=== PATIENT | male | born 1945 | race Caucasian/White ===

== ENCOUNTER 2018-02-25 15:47 | Inpatient (IN) ==
[2018-02-25 17:11] LABS: Baso # (Auto) 0.1 th/mm3 (0.0-0.2); Baso % (Auto) 1.1 % (0.0-2.0); Eos # (Auto) 0.2 th/mm3 (0.0-0.4); Eos % (Auto) 3.2 % (0.0-4.0); Mean Corpuscular HGB Conc 33.1 % (32.0-36.0); Mean Corpuscular Hemoglobin 28.6 pg (27.0-34.0); Mean Corpuscular Volume 86.3 fL (80.0-100.0); Mean Platelet Volume 9.8 fL (7.0-11.0); Mono # (Auto) 0.5 th/mm3 (0.0-0.9); Neut # (Auto) 4.7 th/mm3 (1.8-7.7); Neut % (Auto) 72.7 % (16.0-70.0); Platelet Count 160 th/mm3 (150-450); Red Blood Count 2.33 mil/mm3 (4.50-5.90); Red Cell Distribution Width 16.5 % (11.6-17.2); White Blood Count 6.4 th/mm3 (4.0-11.0)
[2018-02-25 17:22] LABS: Hemoglobin 6.7 gm/dL (13.0-17.0)
[2018-02-25 17:23] LABS: Activated Partial Thrombo Time 24.3 sec (24.3-30.1); Hematocrit 20.1 % (39.0-51.0); INR 1.1 Ratio; Prothrombin Time 11.4 sec (9.8-11.6)
[2018-02-25 17:40] LABS: Alanine Aminotransferase 21 U/L (12-78); Albumin 2.6 g/dL (3.4-5.0); Alkaline Phosphatase 81 U/L (45-117); Anion Gap 7 meq/L (5-15); Aspartate Aminotransferase 8 U/L (15-37); Blood Urea Nitrogen 44 mg/dL (7-18); Carbon Dioxide 28.3 meq/L (21.0-32.0); Chloride 105 meq/L (98-107); Glomerular Filtration Rate 33 mL/min (>89); Glucose,Random 385 mg/dL (74-106); Potassium 5.5 meq/L (3.5-5.1); Sodium 140 meq/L (136-145); Total Protein 5.6 g/dL (6.4-8.2)
[2018-02-25] MEDS ORDERED: Sodium Chlor 0.9% Inj 250 ML IV.SIG SCH (18:00)
--- NOTE | 2018-02-25 18:11 | XR ---
EXAM DATE: 02/25/2018 6:08 PM EDT AGE/SEX: 73 years / Male INDICATIONS: Shortness of breath. CLINICAL DATA: This is the patient's initial encounter. Patient reports that signs and symptoms have been present for 1 day and indicates a pain score of 3/10. MEDICAL/SURGICAL HISTORY: . COPD. CHF Hypertension CABG. COMPARISON: [facility], XR CHEST PA AND LAT, 11/16/2017. . FINDINGS: The patient is status post sternotomy. The heart size is borderline enlarged. There is some mild incr eased density at the lateral right base. The lungs appear otherwise clear. CONCLUSION: Mild increased density at the lateral right base likely related to a mild right pleural effusion. Thi s is unchanged. Electronically signed by: Jayant Prado MD 02/25/2018 6:10 PM EDT
[2018-02-25] MEDS ORDERED: Bisacodyl 10 MG Supp RECTAL PRN (18:29)
[2018-02-25] MEDS ORDERED: Acetaminophen 325 MG Tablet PO PRN ×2 (18:29→19:15)
[2018-02-25] MEDS ORDERED: Pantoprazole Inj 80 MG in Sodium Chlor 0.9% Inj 100 ML IV.CONT SCH (18:38)
[2018-02-25] MEDS ORDERED: Dextrose 50% in Water 50 ML Vial IV.PUSH PRN (18:56)
--- NOTE | 2018-02-25 18:56 | P.HPIM ---
History of Present Illness Primary Care Physician: Franny Holbrook MD Chief Complaint: My doctor told me to come here History of Present Illness: 73-year-old white male with a history of diabetes mellitus type 2, congestive heart failure, coronary artery disease, CVA with right-sided weakness who reports 2-3 days of increased fatigue along with intermittent shortness of breath at rest in which his baseline activity is wheelchair-bound due to his right tibial fracture he sustained back in September of this year. His primary care physician ordered lab work on him and found to have a low hemoglobin of 6.6 and instructed him to come to emergency room for further evaluation and workup. He states that he has not seen any blood in the stools or black tarry stools. He has not had any concerns with constipation or diarrhea. He denies symptoms of abdominal pain nor any nausea or vomiting. He had a recent hospitalization at [facility] for congestive heart failure exacerbation and at that time had a hemoglobin of 8.0 and received 2 units of packed red blood cell transfusion per his at bedside. He was seen by his GI physician, Dr. Carbajal who at that time due to his congestive heart failure did not perform inpatient endoscopy. He states that he does have a history of duodenal ulcers which needed to be cauterized in the past. In addition, he was recently placed on Eliquis by his primary care physician for his history of CVA and peripheral vascular disease 1 week ago. Prior to that he was on warfarin. Inpatient Certification: I certify that the inpatient services were ordered in accordance with Medicare regulations governing the order. This includes certification that hospital inpatient services are reasonable and necessary and in the case of services not specified as inpatient-only under 42 CFR 419.22(n), that they are appropriately provided as inpatient services in accordance to with the 2-midnight benchmark under 43 CFR 412.3(e) Estimated Total Length of Stay (Days): 3 Plans for Post Hospital Care: Home health Review of Systems Constitutional: Reports daytime sleepiness, Reports fatigue, Reports lack of energy, Reports weakness, Denies fever(s), Denies weight gain Eyes: Denies change in vision, Denies double vision Ears, Nose, Mouth, and Throat: Denies abnormal hearing, Denies facial pain, Denies hearing loss, Denies neck pain, Denies sore throat Cardiovascular: Reports leg swelling, Reports shortness of breath, Denies chest pain, Denies chest pain at rest, Denies fast heart rate, Denies irregular heart rhythm, Denies rapid, pounding, or irregular heartbeat, Denies slow heart rate Respiratory: Reports cough, Reports shortness of breath, Reports wheezing, Denies change in phlegm color, Denies chest congestion, Denies coughing up blood , Denies pain with cough Gastrointestinal: Denies abdominal pain, Denies black, tarry stools, Denies bright, red blood in stools, Denies change in bowel habits, Denies change in stools, Denies difficulty swallowing, Denies heartburn, Denies loose stools, Denies nausea, Denies vomiting Genitourinary: Denies blood in urine, Denies decreased urination, Denies difficulty urinating, Denies painful urination Musculoskeletal: Reports abnormal walking, Reports limited joint movement, Denies back pain, Denies joint pain Skin/Breast: Reports change in skin color, Denies excessive hair growth, Denies skin pain Neurologic: Reports abnormal walking, Reports localized weakness, Reports weakness, Denies seizure-like activity, Denies tingling/numbness/burning sensations Psychiatric: Denies abnormal sleep pattern, Denies anxiety, Denies change in appetite, Denies depression Endocrine: Denies cold intolerance, Denies heat intolerance Hematologic/Lymphatic: Reports easy bruising Allergic/Immunologic: Denies GI upset with certain foods PMFSH - History History Provided By: Patient - Medical History Medical History: Medical History (Last Updated 02/25/18 @ 18:46 by Ambreen Wong MD) Atherosclerotic heart disease of artery bypass graft CHF (congestive heart failure) Diabetes Duodenal ulcer Hip fracture, intertrochanteric Hip injury Hyperlipidemia Kidney damage PVD (peripheral vascular disease) Stroke Tibia fracture - Surgical History Surgical History: Surgical History (Last Updated 02/25/18 @ 18:47 by Ambreen Wong MD) History of arthroscopic knee surgery Hx of CABG Hx of cardiac catheterization Hx of cataract surgery S/P foot surgery, right - Family History Family History: Family History (Last Updated 02/25/18 @ 18:47 by Ambreen Wong MD) Other Family history of hypertension - Tobacco History Second Hand Smoke Exposure: No Tobacco Use In Past 30 Days: No Smoking Status: Current every day smoker Tobacco Type: Cigarettes - Alcohol History How Often Do You Have a Drink Containing Alcohol: Never - Substance Use History Substance History: No History of Abuse - Travel History Recent Travel in the [place] Within the Last 8 Weeks: No Recent Travel Out of the Country Within the Last 8 Weeks: No - Immunization History Tetanus Immunization: Unable to Assess Hx Influenza Vaccine This Season: Unable to Assess Medications and Allergies Active Medications: Active Medications Acetaminophen (Tylenol) 650 mg PO Q4H PRN PRN Reason: Temp > 100.4 Al Hydroxide/Mg Hydroxide (Milk Of Magnesia Liq) 30 ml PO Q12H PRN PRN Reason: Mild Constipation Bisacodyl (Dulcolax Supp) 10 mg RECTAL DAILY PRN PRN Reason: SEVERE CONSITIPATION Furosemide (Lasix Inj) 20 mg IV.PUSH ONCE ONE Stop: 02/25/18 18:36 Sodium Chloride (Ns Inj) 250 mls @ 15 mls/hr IV.SIG ONCE KEYON Stop: 02/26/18 10:39 Pantoprazole Sodium 80 mg/ (Sodium Chloride) 100 mls @ 10 mls/hr IV.CONT CONT KEYON Lactulose (Lactulose Liq) 30 ml PO DAILY PRN PRN Reason: SEVERE CONSITIPATION Sennosides (Senokot) 17.2 mg PO Q12H PRN PRN Reason: Moderate Constipation Sodium Chloride (Ns Flush) 2 ml IV.FLUSH PRN PRN PRN Reason: FLUSH AFTER USING IV ACCESS Sodium Chloride (Ns Flush) 2 ml IV.FLUSH BID KEYON Sodium Chloride (Ns Flush) 2 ml IV.FLUSH PRN PRN PRN Reason: FLUSH AFTER USING IV ACCESS Allergies Allergy/AdvReac Type Severity Reaction Status Date / Time morphine Allergy Intermediate HALLUCINATE Unverified 03/30/17 01:23 S Exam Vital signs: Vital Signs 02/25/18 16:07 02/25/18 16:10 Temperature 99.1 F 98.5 F Pulse Rate 60 64 Respiratory Rate 20 18 Blood Pressure 146/60 H 118/56 L Pulse Oximetry 97 96 Intake & Output 02/24/18 02/25/18 02/25/18 18:59 06:59 18:59 Weight 241 kg Narrative: GENERAL: Well-nourished well-developed white male sitting in bed no acute distress SKIN: Warm and dry. Patient had venous stasis dermatitis skin changes with peeling of some dry skin bilateral lower extremities below the knee circumferential HEAD: Atraumatic. Normocephalic. EYES: Pupils equal and round. No scleral icterus. No injection or drainage. ENT: No nasal bleeding or discharge. Mucous membranes pink and moist. Oropharynx benign NECK: Trachea midline. No JVD. CARDIOVASCULAR: Regular rate and rhythm. RESPIRATORY: No accessory muscle use. Few expiratory wheeze bilateral bases. GASTROINTESTINAL: Abdomen soft, non-tender, nondistended. Hepatic and splenic margins not palpable. Normoactive bowel sounds MUSCULOSKELETAL: Extremities without clubbing, cyanosis, 1+ pitting edema NEUROLOGICAL: Awake and alert to person place time and situation. No obvious cranial nerve deficits. Motor strength of 4.5 out of 5 right upper extremities and right lower extremities, sensation grossly intact. Normal speech. PSYCHIATRIC: Appropriate mood and affect; insight and judgment normal. Results - Labs CBC & Chem 7: 02/25/18 16:35 02/25/18 16:35 Labs: Short CBC 02/25/18 Range/Units 16:35 WBC 6.4 (4.0-11.0) th/mm3 Hgb 6.7 L* (13.0-17.0) gm/dL Hct 20.1 L* (39.0-51.0) % Plt Count 160 (150-450) th/mm3 BMP 02/25/18 16:35 Sodium 140 Potassium 5.5 H Chloride 105 Carbon Dioxide 28.3 BUN 44 H Creatinine 1.99 H Calcium 8.0 L Liver Function 02/25/18 Range/Units 16:35 Total Bilirubin 0.2 (0.2-1.0) mg/dL AST 8 L (15-37) U/L ALT 21 (12-78) U/L Alkaline Phosphatase 81 (45-117) U/L Albumin 2.6 L (3.4-5.0) g/dL - Imaging Impressions Chest X-Ray 02/25/18 17:46 CONCLUSION: Mild increased density at the lateral right base likely related to a mild right pleural effusion. This is unchanged. Caprini VTE Risk Assessment Caprini VTE Risk Assessment: Moderate/High Risk (score >= 2) VTE Pharmacological Exception Reason: Active bleeding Caprini Risk Assessment Model: Point Value = 1 Point Value = 2 Point Value = 3 Point Value = 5 Age 41-60 Minor surgery BMI > 25 kg/m2 Swollen legs Varicose veins or History of unexplained or recurrent spontaneous Oral contraceptives or hormone replacement Sepsis (< 1 month) Serious lung disease, including pneumonia (< 1 month) Abnormal pulmonary function Acute myocardial infarction Congestive heart failure (< 1 month) History of inflammatory bowel disease Medical patient at bed rest Age 61-74 Arthroscopic surgery Major open surgery (> 45 min) Laparoscopic surgery (> 45 min) Malignancy Confined to bed (> 72 hours) Immobilizing plaster cast Central venous access Age >= 75 History of VTE Family history of VTE Factor V Leiden Prothrombin [id number] Lupus anticoagulant Anticardiolipin antibodies Elevated serum homocysteine Heparin-induced thrombocytopenia Other congenital or acquired thrombophilia Stroke (< 1 month) Elective arthroplasty Hip, pelvis, or leg fracture Acute spinal cord injury (< 1 month) Prophylaxis Regimen: Total Risk Factor Score Risk Level Prophylaxis Regimen 0-1 Low Early ambulation 2 Moderate Order ONE of the following: *Sequential Compression Device (SCD) *Heparin 5000 units SQ BID 3-4 Higher Order ONE of the following medications: *Heparin 5000 units SQ TID *Enoxaparin/Lovenox 40 mg SQ daily (WT < 150 kg, CrCl > 30 mL/min) *Enoxaparin/Lovenox 30 mg SQ daily (WT < 150 kg, CrCl > 10-29 mL/min) *Enoxaparin/Lovenox 30 mg SQ BID (WT < 150 kg, CrCl > 30 mL/min) AND/OR *Sequential Compression Device (SCD) 5 or more Highest Order ONE of the following medications: *Heparin 5000 units SQ TID (Preferred with Epidurals) *Enoxaparin/Lovenox 40 mg SQ daily (WT < 150 kg, CrCl > 30 mL/min) *Enoxaparin/Lovenox 30 mg SQ daily (WT < 150 kg, CrCl > 10-29 mL/min) *Enoxaparin/Lovenox 30 mg SQ BID (WT < 150 kg, CrCl > 30 mL/min) AND *Sequential Compression Device (SCD) Assessment and Plan - Plan 73-year-old white male with a history of diabetes mellitus type 2, congestive heart failure, coronary artery disease, peripheral vascular disease, CVA who has been on Eliquis during the past week was sent to the emergency room by his primary care physician secondary abnormal lab in low hemoglobin of 6.6 1. Acute anemia likely due to underlying GI bleedat this time stop Eliquis. Start patient on Protonix drip. Transfuse 2 units of packed red blood cell with Lasix between units. Monitor hemoglobin hematocrit. Consult his GI physician Dr. Barrow for further recommendations. 2. History of congestive heart failurecurrently compensated, will monitor closely on fluids given and transfusion. Lasix between units. 3. Diabetes mellitus type 2continue with Accu-Cheks with sliding scale insulin 4. History of CVApatient currently wheelchair bound due to previous right tibial fracturecontinue physical therapy will need home health care upon discharge to home. At this time will hold Eliquis. 5. Acute kidney injury likely due to GI bleedwill monitor BUN/creatinine with transfusion. 5. DVT prophylaxisanticoagulation contraindicated due to GI bleed. Mechanical prophylaxis contraindicated secondary to bilateral lower extremity edema. We will have family member bring in list of home medication to review.
[2018-02-25 19:44] LABS: Ovalocytes 1+; Platelet Estimate Normal (Normal)
--- NOTE | 2018-02-25 20:10 | ED ---
HPI General Chief complaint: Recheck/Abnormal Lab/Rx Stated complaint: Doc Sent/Medical Time Seen by Provider: 02/25/18 16:25 History of Present Illness HPI narrative: Patient is a 73-year-old male with a history of chronic GI bleeding, has had pill camera's endoscopies and still no source identified presents to the ER for evaluation of low hemoglobin at outpatient lab. Patient states has been feeling a little short of breath and has had CHF in the past. NO abdominal pain, chornically dark stools, no hematemesis. Patient states that he was told his hemoglobin was 6.6. States has had several outpatient blood transfusions in the past as well. Symptoms moderate, context, associated s/s as above. Duration is months to years. Related Data Home Medications Medication Instructions Recorded Confirmed Calcium 600 PO 02/25/18 amlodipine 10 mg PO DAILY 02/25/18 02/25/18 apixaban [Eliquis] 5 mg PO BID 02/25/18 02/25/18 atorvastatin [Lipitor] 80 mg PO DAILY 02/25/18 02/25/18 doxazosin 4 mg PO BID 02/25/18 02/25/18 escitalopram oxalate [Lexapro] PO BID 02/25/18 furosemide 20 mg PO BID 02/25/18 02/25/18 iron 28 mg PO BID 02/25/18 02/25/18 metoprolol tartrate 12.5 mg PO BID 02/25/18 02/25/18 pantoprazole 40 mg PO DAILY 02/25/18 02/25/18 Allergies Allergy/AdvReac Type Severity Reaction Status Date / Time morphine Allergy Intermediate HALLUCINATE Unverified 03/30/17 01:23 S Review of Systems Except as stated in HPI: all other systems reviewed are negative [facility] Surgical History Surgical History History of arthroscopic knee surgery (Acute) Hx of CABG (Acute) Hx of cardiac catheterization (Acute) Hx of cataract surgery (Acute) S/P foot surgery, right (Acute) Family History Family History Other Family history of hypertension Social History Social History Substance History: No History of Abuse Second Hand Smoke Exposure: Yes Smoking Status: Current every day smoker Tobacco Type: Cigarettes How Often Do You Have a Drink Containing Alcohol: Never Recent Travel in [facility] within the Last 8 Weeks: No Recent Out of Country Travel within the Last 8 Weeks: No Exam Narrative Exam Narrative: GENERAL: Well-developed pleasant pale-appearing male in no obvious distress. SKIN: Focused skin assessment warm/dry. HEAD: Atraumatic. Normocephalic. EYES: Pupils equal and round. No scleral icterus. No injection or drainage. ENT: No nasal bleeding or discharge. Mucous membranes pink and moist. NECK: Trachea midline. No JVD. CARDIOVASCULAR: Regular rate and rhythm. No murmur appreciated. RESPIRATORY: No accessory muscle use. Clear to auscultation. Breath sounds equal bilaterally. GASTROINTESTINAL: Abdomen soft, non-tender, nondistended. Hepatic and splenic margins not palpable. MUSCULOSKELETAL: No obvious deformities. No clubbing. No cyanosis. No edema. NEUROLOGICAL: Awake and alert. No obvious cranial nerve deficits. Motor grossly within normal limits. Normal speech. PSYCHIATRIC: Appropriate mood and affect; insight and judgment normal. Course Initial Documented Vital Signs Temperature 99.1 F 02/25/18 16:07 Pulse Rate 60 02/25/18 16:07 Respiratory Rate 20 02/25/18 16:07 Blood Pressure 146/60 H 02/25/18 16:07 Pulse Oximetry 97 02/25/18 16:07 Last Documented Vital Signs Temperature 97.3 F L 02/27/18 18:14 Pulse Rate 67 02/27/18 18:14 Respiratory Rate 18 02/27/18 18:14 Blood Pressure 204/84 H 02/27/18 18:14 Pulse Oximetry 96 02/27/18 18:14 Medical Decision Making [facility] Narrative Medical decision making narrative: Patient roomed in the ER> Hemodynamically vs are reassuring. Labs repeated here and hemoglobin is 6.7. He is symptomatic. Recommended transfusion and after dicusssion of r/b/c/a he agrees. 2U in ER and 4 in reserve. Discussed for admission and he is agreeable. Differential Diagnosis Differential Diagnosis: Anemia, GI bleeding, CHF exacerbation, electrolyte abnormality. Lab Data Result diagrams: 02/27/18 09:15 02/27/18 09:15 Lab Results 02/25/18 02/25/18 02/25/18 Range/Units 16:35 16:35 16:35 WBC 6.4 (4.0-11.0) th/mm3 RBC 2.33 L (4.50-5.90) mil/mm3 Hgb 6.7 L* (13.0-17.0) gm/dL Hct 20.1 L* (39.0-51.0) % MCV 86.3 (80.0-100.0) fL MCH 28.6 (27.0-34.0) pg MCHC 33.1 (32.0-36.0) % RDW 16.5 (11.6-17.2) % Plt Count 160 (150-450) th/mm3 MPV 9.8 (7.0-11.0) fL Prelim Diff (Auto) Slide review pending Neut % (Auto) 72.7 H (16.0-70.0) % Lymph % (Auto) 15.0 (9.0-44.0) % [place] % (Auto) 8.0 (0.0-8.0) % Eos % (Auto) 3.2 (0.0-4.0) % Baso % (Auto) 1.1 (0.0-2.0) % Neut # (Auto) 4.7 (1.8-7.7) th/mm3 Lymph # (Auto) 1.0 (1.0-4.8) th/mm3 [place] # (Auto) 0.5 (0.0-0.9) th/mm3 Eos # (Auto) 0.2 (0.0-0.4) th/mm3 Baso # (Auto) 0.1 (0.0-0.2) th/mm3 WBC Differential . Diff Scan Auto diff confirmed Differential Comment . Platelet Estimate Normal (Normal) Platelet Morphology Enlarged H (Normal) Ovalocytes 1+ H (None) Keratocytes Occ H (None) PT 11.4 (9.8-11.6) sec INR 1.1 Ratio APTT 24.3 (24.3-30.1) sec Sodium 140 (136-145) meq/L Potassium 5.5 H (3.5-5.1) meq/L Chloride 105 (98-107) meq/L Carbon Dioxide 28.3 (21.0-32.0) meq/L Anion Gap 7 (5-15) meq/L BUN 44 H (7-18) mg/dL Creatinine 1.99 H (0.60-1.30) mg/dL Estimated GFR 33 L (>89) mL/min POC Glucose (68-110) mg/dl Random Glucose 385 H D (74-106) mg/dL Calcium 8.0 L (8.5-10.1) mg/dL Total Bilirubin 0.2 (0.2-1.0) mg/dL AST 8 L (15-37) U/L ALT 21 (12-78) U/L Alkaline Phosphatase 81 (45-117) U/L Total Protein 5.6 L (6.4-8.2) g/dL Albumin 2.6 L (3.4-5.0) g/dL Blood Type Antibody Screen MTS Gel Crossmatch 02/25/18 02/25/18 02/25/18 Range/Units 16:35 16:35 19:11 WBC (4.0-11.0) th/mm3 RBC (4.50-5.90) mil/mm3 Hgb (13.0-17.0) gm/dL Hct (39.0-51.0) % MCV (80.0-100.0) fL MCH (27.0-34.0) pg MCHC (32.0-36.0) % RDW (11.6-17.2) % Plt Count (150-450) th/mm3 MPV (7.0-11.0) fL Prelim Diff (Auto) Neut % (Auto) (16.0-70.0) % Lymph % (Auto) (9.0-44.0) % [place] % (Auto) (0.0-8.0) % Eos % (Auto) (0.0-4.0) % Baso % (Auto) (0.0-2.0) % Neut # (Auto) (1.8-7.7) th/mm3 Lymph # (Auto) (1.0-4.8) th/mm3 [place] # (Auto) (0.0-0.9) th/mm3 Eos # (Auto) (0.0-0.4) th/mm3 Baso # (Auto) (0.0-0.2) th/mm3 WBC Differential Diff Scan Differential Comment Platelet Estimate (Normal) Platelet Morphology (Normal) Ovalocytes (None) Keratocytes (None) PT (9.8-11.6) sec INR Ratio APTT (24.3-30.1) sec Sodium (136-145) meq/L Potassium (3.5-5.1) meq/L Chloride (98-107) meq/L Carbon Dioxide (21.0-32.0) meq/L Anion Gap (5-15) meq/L BUN (7-18) mg/dL Creatinine (0.60-1.30) mg/dL Estimated GFR (>89) mL/min POC Glucose 338 H (68-110) mg/dl Random Glucose (74-106) mg/dL Calcium (8.5-10.1) mg/dL Total Bilirubin (0.2-1.0) mg/dL AST (15-37) U/L ALT (12-78) U/L Alkaline Phosphatase (45-117) U/L Total Protein (6.4-8.2) g/dL Albumin (3.4-5.0) g/dL Blood Type A Negative Antibody Screen Negative MTS Gel Crossmatch See Detail 02/25/18 02/26/18 02/26/18 Range/Units 20:35 03:12 03:12 WBC (4.0-11.0) th/mm3 RBC (4.50-5.90) mil/mm3 Hgb 7.9 L (13.0-17.0) gm/dL Hct 23.2 L (39.0-51.0) % MCV (80.0-100.0) fL MCH (27.0-34.0) pg MCHC (32.0-36.0) % RDW (11.6-17.2) % Plt Count (150-450) th/mm3 MPV (7.0-11.0) fL Prelim Diff (Auto) Neut % (Auto) (16.0-70.0) % Lymph % (Auto) (9.0-44.0) % [place] % (Auto) (0.0-8.0) % Eos % (Auto) (0.0-4.0) % Baso % (Auto) (0.0-2.0) % Neut # (Auto) (1.8-7.7) th/mm3 Lymph # (Auto) (1.0-4.8) th/mm3 [place] # (Auto) (0.0-0.9) th/mm3 Eos # (Auto) (0.0-0.4) th/mm3 Baso # (Auto) (0.0-0.2) th/mm3 WBC Differential Diff Scan Differential Comment Platelet Estimate (Normal) Platelet Morphology (Normal) Ovalocytes (None) Keratocytes (None) PT (9.8-11.6) sec INR Ratio APTT (24.3-30.1) sec Sodium 143 (136-145) meq/L Potassium 4.7 D (3.5-5.1) meq/L Chloride 108 H (98-107) meq/L Carbon Dioxide 31.3 (21.0-32.0) meq/L Anion Gap 4 L (5-15) meq/L BUN 43 H (7-18) mg/dL Creatinine 1.82 H (0.60-1.30) mg/dL Estimated GFR 37 L (>89) mL/min POC Glucose 281 H (68-110) mg/dl Random Glucose 140 H D (74-106) mg/dL Calcium 8.3 L (8.5-10.1) mg/dL Total Bilirubin (0.2-1.0) mg/dL AST (15-37) U/L ALT (12-78) U/L Alkaline Phosphatase (45-117) U/L Total Protein (6.4-8.2) g/dL Albumin (3.4-5.0) g/dL Blood Type Antibody Screen MTS Gel Crossmatch 02/26/18 02/26/18 02/26/18 Range/Units 07:24 11:46 12:15 WBC 7.4 (4.0-11.0) th/mm3 RBC 2.81 L (4.50-5.90) mil/mm3 Hgb 8.1 L (13.0-17.0) gm/dL Hct 24.2 L (39.0-51.0) % MCV 86.0 (80.0-100.0) fL MCH 28.7 (27.0-34.0) pg MCHC 33.4 (32.0-36.0) % RDW 16.3 (11.6-17.2) % Plt Count 173 (150-450) th/mm3 MPV 9.8 (7.0-11.0) fL Prelim Diff (Auto) Neut % (Auto) 74.4 H (16.0-70.0) % Lymph % (Auto) 14.1 (9.0-44.0) % [place] % (Auto) 6.8 (0.0-8.0) % Eos % (Auto) 3.4 (0.0-4.0) % Baso % (Auto) 1.3 (0.0-2.0) % Neut # (Auto) 5.5 (1.8-7.7) th/mm3 Lymph # (Auto) 1.0 (1.0-4.8) th/mm3 [place] # (Auto) 0.5 (0.0-0.9) th/mm3 Eos # (Auto) 0.2 (0.0-0.4) th/mm3 Baso # (Auto) 0.1 (0.0-0.2) th/mm3 WBC Differential . Diff Scan Differential Comment Auto diff final Platelet Estimate (Normal) Platelet Morphology (Normal) Ovalocytes (None) Keratocytes (None) PT (9.8-11.6) sec INR Ratio APTT (24.3-30.1) sec Sodium (136-145) meq/L Potassium (3.5-5.1) meq/L Chloride (98-107) meq/L Carbon Dioxide (21.0-32.0) meq/L Anion Gap (5-15) meq/L BUN (7-18) mg/dL Creatinine (0.60-1.30) mg/dL Estimated GFR (>89) mL/min POC Glucose 148 H 173 H (68-110) mg/dl Random Glucose (74-106) mg/dL Calcium (8.5-10.1) mg/dL Total Bilirubin (0.2-1.0) mg/dL AST (15-37) U/L ALT (12-78) U/L Alkaline Phosphatase (45-117) U/L Total Protein (6.4-8.2) g/dL Albumin (3.4-5.0) g/dL Blood Type Antibody Screen MTS Gel Crossmatch 02/26/18 02/26/18 02/27/18 Range/Units 16:52 23:13 08:35 WBC (4.0-11.0) th/mm3 RBC (4.50-5.90) mil/mm3 Hgb (13.0-17.0) gm/dL Hct (39.0-51.0) % MCV (80.0-100.0) fL MCH (27.0-34.0) pg MCHC (32.0-36.0) % RDW (11.6-17.2) % Plt Count (150-450) th/mm3 MPV (7.0-11.0) fL Prelim Diff (Auto) Neut % (Auto) (16.0-70.0) % Lymph % (Auto) (9.0-44.0) % [place] % (Auto) (0.0-8.0) % Eos % (Auto) (0.0-4.0) % Baso % (Auto) (0.0-2.0) % Neut # (Auto) (1.8-7.7) th/mm3 Lymph # (Auto) (1.0-4.8) th/mm3 [place] # (Auto) (0.0-0.9) th/mm3 Eos # (Auto) (0.0-0.4) th/mm3 Baso # (Auto) (0.0-0.2) th/mm3 WBC Differential Diff Scan Differential Comment Platelet Estimate (Normal) Platelet Morphology (Normal) Ovalocytes (None) Keratocytes (None) PT (9.8-11.6) sec INR Ratio APTT (24.3-30.1) sec Sodium (136-145) meq/L Potassium (3.5-5.1) meq/L Chloride (98-107) meq/L Carbon Dioxide (21.0-32.0) meq/L Anion Gap (5-15) meq/L BUN (7-18) mg/dL Creatinine (0.60-1.30) mg/dL Estimated GFR (>89) mL/min POC Glucose 222 H 236 H 159 H (68-110) mg/dl Random Glucose (74-106) mg/dL Calcium (8.5-10.1) mg/dL Total Bilirubin (0.2-1.0) mg/dL AST (15-37) U/L ALT (12-78) U/L Alkaline Phosphatase (45-117) U/L Total Protein (6.4-8.2) g/dL Albumin (3.4-5.0) g/dL Blood Type Antibody Screen MTS Gel Crossmatch 02/27/18 02/27/18 02/27/18 Range/Units 09:15 09:15 12:26 WBC 6.4 (4.0-11.0) th/mm3 RBC 2.89 L (4.50-5.90) mil/mm3 Hgb 8.2 L (13.0-17.0) gm/dL Hct 24.9 L (39.0-51.0) % MCV 86.3 (80.0-100.0) fL MCH 28.5 (27.0-34.0) pg MCHC 33.1 (32.0-36.0) % RDW 16.8 (11.6-17.2) % Plt Count 156 (150-450) th/mm3 MPV 9.7 (7.0-11.0) fL Prelim Diff (Auto) Neut % (Auto) 73.8 H (16.0-70.0) % Lymph % (Auto) 13.2 (9.0-44.0) % [place] % (Auto) 8.1 H (0.0-8.0) % Eos % (Auto) 3.7 (0.0-4.0) % Baso % (Auto) 1.2 (0.0-2.0) % Neut # (Auto) 4.7 (1.8-7.7) th/mm3 Lymph # (Auto) 0.8 L (1.0-4.8) th/mm3 [place] # (Auto) 0.5 (0.0-0.9) th/mm3 Eos # (Auto) 0.2 (0.0-0.4) th/mm3 Baso # (Auto) 0.1 (0.0-0.2) th/mm3 WBC Differential . Diff Scan Differential Comment Auto diff final Platelet Estimate (Normal) Platelet Morphology (Normal) Ovalocytes (None) Keratocytes (None) PT (9.8-11.6) sec INR Ratio APTT (24.3-30.1) sec Sodium 147 H (136-145) meq/L Potassium 4.6 (3.5-5.1) meq/L Chloride 110 H (98-107) meq/L Carbon Dioxide 29.9 (21.0-32.0) meq/L Anion Gap 7 (5-15) meq/L BUN 35 H (7-18) mg/dL Creatinine 1.55 H (0.60-1.30) mg/dL Estimated GFR 44 L (>89) mL/min POC Glucose 138 H (68-110) mg/dl Random Glucose 124 H (74-106) mg/dL Calcium 8.4 L (8.5-10.1) mg/dL Total Bilirubin 0.4 (0.2-1.0) mg/dL AST 11 L (15-37) U/L ALT 19 (12-78) U/L Alkaline Phosphatase 81 (45-117) U/L Total Protein 5.7 L (6.4-8.2) g/dL Albumin 2.7 L (3.4-5.0) g/dL Blood Type Antibody Screen MTS Gel Crossmatch 02/27/18 02/27/18 Range/Units 17:09 19:45 WBC (4.0-11.0) th/mm3 RBC (4.50-5.90) mil/mm3 Hgb (13.0-17.0) gm/dL Hct (39.0-51.0) % MCV (80.0-100.0) fL MCH (27.0-34.0) pg MCHC (32.0-36.0) % RDW (11.6-17.2) % Plt Count (150-450) th/mm3 MPV (7.0-11.0) fL Prelim Diff (Auto) Neut % (Auto) (16.0-70.0) % Lymph % (Auto) (9.0-44.0) % [place] % (Auto) (0.0-8.0) % Eos % (Auto) (0.0-4.0) % Baso % (Auto) (0.0-2.0) % Neut # (Auto) (1.8-7.7) th/mm3 Lymph # (Auto) (1.0-4.8) th/mm3 [place] # (Auto) (0.0-0.9) th/mm3 Eos # (Auto) (0.0-0.4) th/mm3 Baso # (Auto) (0.0-0.2) th/mm3 WBC Differential Diff Scan Differential Comment Platelet Estimate (Normal) Platelet Morphology (Normal) Ovalocytes (None) Keratocytes (None) PT (9.8-11.6) sec INR Ratio APTT (24.3-30.1) sec Sodium (136-145) meq/L Potassium (3.5-5.1) meq/L Chloride (98-107) meq/L Carbon Dioxide (21.0-32.0) meq/L Anion Gap (5-15) meq/L BUN (7-18) mg/dL Creatinine (0.60-1.30) mg/dL Estimated GFR (>89) mL/min POC Glucose 126 H 242 H (68-110) mg/dl Random Glucose (74-106) mg/dL Calcium (8.5-10.1) mg/dL Total Bilirubin (0.2-1.0) mg/dL AST (15-37) U/L ALT (12-78) U/L Alkaline Phosphatase (45-117) U/L Total Protein (6.4-8.2) g/dL Albumin (3.4-5.0) g/dL Blood Type Antibody Screen MTS Gel Crossmatch Imaging Data Radiologist's impression: Chest X-Ray 02/25/18 17:46 CONCLUSION: Mild increased density at the lateral right base likely related to a mild right pleural effusion. This is unchanged. Discharge Plan Discharge Disposition Patient Disposition: 30 Still Patient Discharge Details Diagnosis: Symptomatic anemia, Occult GI bleeding Physicians Team ED Provider: Rudolph Chaves Primary Care Provider: Franny Holbrook Attending Provider: Ambreen Wong Other Providers: Bert Barrow [employer] Discharge Interventions Interventions: ED Discharge Assessment Last Done: 02/25/18 20:24 Vital Signs Last Done: 02/25/18 16:10 Status ED Status: Left Department Discharge Information Discharge Date/Time: 02/25/18 19:45
[2018-02-25] MEDS: Insulin NovoLOG Aspart Correctional Sugar Inj SQ SCH (20:56)
[2018-02-26 03:25] LABS: Hematocrit 23.2 % (39.0-51.0); Hemoglobin 7.9 gm/dL (13.0-17.0)
[2018-02-26 03:49] LABS: Calcium 8.3 mg/dL (8.5-10.1); Carbon Dioxide 31.3 meq/L (21.0-32.0); Potassium 4.7 meq/L (3.5-5.1)
[2018-02-26] MEDS: Insulin NovoLOG Aspart Correctional Sugar Inj SQ SCH ×4 (07:44→23:19)
--- NOTE | 2018-02-26 10:32 | P.PN ---
Subjective Interval history: Follow-up acute symptomatic anemia February 26, 2018-patient seen and examined, he was transfused 2 units packed red blood cells however H&H still low will repeat. Denies any nausea vomiting this a.m. Physical Exam Vital signs: Vital Signs 02/25/18 16:07 02/25/18 16:10 02/25/18 18:39 Temperature 99.1 F 98.5 F Pulse Rate 60 64 Respiratory Rate 20 18 Blood Pressure 146/60 H 118/56 L Pulse Oximetry 97 96 94 L 02/25/18 19:01 02/25/18 19:25 02/25/18 20:00 Temperature 98.4 F 98.3 F 97.8 F Pulse Rate 64 62 66 Respiratory Rate 16 18 17 Blood Pressure 172/73 H 140/64 158/70 H Pulse Oximetry 95 96 96 02/25/18 21:41 02/25/18 22:00 02/25/18 22:04 Temperature 97.2 F L Pulse Rate 84 80 Respiratory Rate 16 16 Blood Pressure 157/67 H 146/68 H Pulse Oximetry 95 94 L 95 02/26/18 00:00 02/26/18 04:00 02/26/18 08:00 Temperature 97.8 F 98 F 97.4 F L Pulse Rate 61 64 66 Respiratory Rate 19 17 20 Blood Pressure 121/56 L 122/65 173/77 H Pulse Oximetry 97 97 94 L Intake & Output 02/25/18 02/26/18 02/26/18 18:59 06:59 18:59 Intake Total 250 / 250 150 / 150 Balance 250 / 250 150 / 150 Weight 241 kg 109.9 kg Intake: IV 150 / 150 Protonix Inj 80 MG In NS Inj 100 / 100 100 ML @ 10 mls/hr IV.CONT CONT KEYON Rx#:[id number] NS Inj 250 ML @ 15 mls/hr IV. 50 / 50 SIG ONCE KEYON Rx#:[id number] Intake (Blood Product) Amt 250 / 250 Rbc As-3 Leukoreduced Unit 0 / 0 [id number] Rbc As-3 Leukoreduced Unit 250 / 250 [id number] Narrative: GENERAL: NAD SKIN: Warm and dry. HEAD: Normocephalic. EYES: No scleral icterus. No injection or drainage. NECK: Supple, trachea midline. No JVD or lymphadenopathy. CARDIOVASCULAR: Regular rate and rhythm without murmurs, gallops, or rubs. RESPIRATORY: Breath sounds equal bilaterally. No accessory muscle use. GASTROINTESTINAL: Abdomen soft, non-tender, nondistended. MUSCULOSKELETAL: No cyanosis, or edema. BACK: Nontender without obvious deformity. No CVA tenderness. Results - Labs CBC & Chem 7: 02/26/18 03:12 02/26/18 03:12 Laboratory Results - last 24 hr 02/25/18 02/25/18 02/25/18 16:35 16:35 16:35 WBC 6.4 RBC 2.33 L Hgb 6.7 L* Hct 20.1 L* MCV 86.3 MCH 28.6 MCHC 33.1 RDW 16.5 Plt Count 160 MPV 9.8 Prelim Diff (Auto) Slide review pending Neut % (Auto) 72.7 H Lymph % (Auto) 15.0 [place] % (Auto) 8.0 Eos % (Auto) 3.2 Baso % (Auto) 1.1 Neut # (Auto) 4.7 Lymph # (Auto) 1.0 [place] # (Auto) 0.5 Eos # (Auto) 0.2 Baso # (Auto) 0.1 WBC Differential . Diff Scan Auto diff confirmed Differential Comment . Platelet Estimate Normal Platelet Morphology Enlarged H Ovalocytes 1+ H Keratocytes Occ H PT 11.4 INR 1.1 APTT 24.3 Sodium 140 Potassium 5.5 H Chloride 105 Carbon Dioxide 28.3 Anion Gap 7 BUN 44 H Creatinine 1.99 H Estimated GFR 33 L POC Glucose Random Glucose 385 H D Calcium 8.0 L Total Bilirubin 0.2 AST 8 L ALT 21 Alkaline Phosphatase 81 Total Protein 5.6 L Albumin 2.6 L Blood Type Antibody Screen MTS Gel Crossmatch 02/25/18 02/25/18 02/25/18 16:35 16:35 19:11 WBC RBC Hgb Hct MCV MCH MCHC RDW Plt Count MPV Prelim Diff (Auto) Neut % (Auto) Lymph % (Auto) [place] % (Auto) Eos % (Auto) Baso % (Auto) Neut # (Auto) Lymph # (Auto) [place] # (Auto) Eos # (Auto) Baso # (Auto) WBC Differential Diff Scan Differential Comment Platelet Estimate Platelet Morphology Ovalocytes Keratocytes PT INR APTT Sodium Potassium Chloride Carbon Dioxide Anion Gap BUN Creatinine Estimated GFR POC Glucose 338 H Random Glucose Calcium Total Bilirubin AST ALT Alkaline Phosphatase Total Protein Albumin Blood Type A Negative Antibody Screen Negative MTS Gel Crossmatch See Detail 02/25/18 02/26/18 02/26/18 20:35 03:12 03:12 WBC RBC Hgb 7.9 L Hct 23.2 L MCV MCH MCHC RDW Plt Count MPV Prelim Diff (Auto) Neut % (Auto) Lymph % (Auto) [place] % (Auto) Eos % (Auto) Baso % (Auto) Neut # (Auto) Lymph # (Auto) [place] # (Auto) Eos # (Auto) Baso # (Auto) WBC Differential Diff Scan Differential Comment Platelet Estimate Platelet Morphology Ovalocytes Keratocytes PT INR APTT Sodium 143 Potassium 4.7 D Chloride 108 H Carbon Dioxide 31.3 Anion Gap 4 L BUN 43 H Creatinine 1.82 H Estimated GFR 37 L POC Glucose 281 H Random Glucose 140 H D Calcium 8.3 L Total Bilirubin AST ALT Alkaline Phosphatase Total Protein Albumin Blood Type Antibody Screen MTS Gel Crossmatch 02/26/18 07:24 WBC RBC Hgb Hct MCV MCH MCHC RDW Plt Count MPV Prelim Diff (Auto) Neut % (Auto) Lymph % (Auto) [place] % (Auto) Eos % (Auto) Baso % (Auto) Neut # (Auto) Lymph # (Auto) [place] # (Auto) Eos # (Auto) Baso # (Auto) WBC Differential Diff Scan Differential Comment Platelet Estimate Platelet Morphology Ovalocytes Keratocytes PT INR APTT Sodium Potassium Chloride Carbon Dioxide Anion Gap BUN Creatinine Estimated GFR POC Glucose 148 H Random Glucose Calcium Total Bilirubin AST ALT Alkaline Phosphatase Total Protein Albumin Blood Type Antibody Screen MTS Gel Crossmatch - Imaging Impressions Chest X-Ray 02/25/18 17:46 CONCLUSION: Mild increased density at the lateral right base likely related to a mild right pleural effusion. This is unchanged. Assessment and Plan - Assessment (1) Symptomatic anemia Code(s): D64.9 - Anemia, unspecified Status: Acute - Plan 73-year-old man with 1. Acute anemia likely due to underlying GI bleed Patient was transfused 2 units packed red blood cell, repeat H&H this a.m. GI has been consulted for evaluation for possible panendoscopy Continue with PPI, continue to hold Eliquis 2. History of congestive heart failure currently compensated 3. Diabetes mellitus type 2 continue with Accu-Cheks with sliding scale insulin 4. History of CVApatient currently wheelchair bound due to previous right tibial fracturecontinue physical therapy will need home health care upon discharge to home. At this time continue to hold Eliquis. 5. Acute kidney injury likely due to GI bleed monitor BUN/creatinine with transfusion. 5. DVT prophylaxisanticoagulation contraindicated due to GI bleed. Mechanical prophylaxis contraindicated secondary to bilateral lower extremity edema.
[2018-02-26 13:03] LABS: Baso # (Auto) 0.1 th/mm3 (0.0-0.2); Baso % (Auto) 1.3 % (0.0-2.0); Eos # (Auto) 0.2 th/mm3 (0.0-0.4); Eos % (Auto) 3.4 % (0.0-4.0); Hematocrit 24.2 % (39.0-51.0); Hemoglobin 8.1 gm/dL (13.0-17.0); Lymph % (Auto) 14.1 % (9.0-44.0); Mean Corpuscular HGB Conc 33.4 % (32.0-36.0); Mean Corpuscular Hemoglobin 28.7 pg (27.0-34.0); Mean Platelet Volume 9.8 fL (7.0-11.0); Mono # (Auto) 0.5 th/mm3 (0.0-0.9); Mono % (Auto) 6.8 % (0.0-8.0); Neut # (Auto) 5.5 th/mm3 (1.8-7.7); Neut % (Auto) 74.4 % (16.0-70.0); Platelet Count 173 th/mm3 (150-450); Red Blood Count 2.81 mil/mm3 (4.50-5.90); Red Cell Distribution Width 16.3 % (11.6-17.2); White Blood Count 7.4 th/mm3 (4.0-11.0)
--- NOTE | 2018-02-26 14:59 | P.CONGI ---
History of Present Illness Consult date: 02/26/18 Requesting physician: Doyle Galvez Consult reason: gibleeding Chief complaint: GI BLEED WITH ANEMIA History of Present Illness: This is a very pleasant 73 year old gentleman know to Dr Barrow. He has a long standing hx of occult GI bleeding. Has undergone EGD/colon and video capsule endoscopy. 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 We have tried several times for him to get single balloon enteroscopy as outpt. Last trial was 2-3 wks. ago. This couldn't be done due to acute on chronic cardio/pulm disease. He has been on coumadin in the past. Now he is on Eliquis. He was brought in to hospital this admission due to symptomatic anemia. He denies melena, or overt bleeding. no n/v no abdominal pain. no associated s/ s. Review of Systems A 12 point review of systems was performed by me and shown to be negative or non contributory, except mentioned in the HPI. 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 CHF (congestive heart failure) Diabetes Duodenal ulcer Hip fracture, intertrochanteric Hip injury Hyperlipidemia Kidney damage PVD (peripheral vascular disease) Stroke Tibia fracture - Surgical History Surgical History: Surgical History (Last Updated 02/25/18 @ 18:47 by Ambreen Wong MD) History of arthroscopic knee surgery Hx of CABG Hx of cardiac catheterization Hx of cataract surgery S/P foot surgery, right - Family History Family History: Family History (Last Updated 02/25/18 @ 18:47 by Ambreen Wong MD) Other Family history of hypertension - Tobacco History Second Hand Smoke Exposure: Yes Tobacco Use In Past 30 Days: Yes Smoking Status: Current every day smoker Tobacco Type: Cigarettes - Alcohol History How Often Do You Have a Drink Containing Alcohol: Never - Substance Use History Substance History: No History of Abuse - Travel History Recent Travel in the [place] Within the Last 8 Weeks: No Recent Travel Out of the Country Within the Last 8 Weeks: No - Immunization History Tetanus Immunization: Never Vaccinated Hx Influenza Vaccine This Season: Yes Medications and Allergies Active Medications: Active Medications Acetaminophen (Tylenol) 650 mg PO Q6H PRN PRN Reason: Temp > 100.4 Last Admin: 02/26/18 10:42 Dose: 650 mg Al Hydroxide/Mg Hydroxide (Milk Of Magnesia Liq) 30 ml PO Q12H PRN PRN Reason: Mild Constipation Bisacodyl (Dulcolax Supp) 10 mg RECTAL DAILY PRN PRN Reason: SEVERE CONSITIPATION Dextrose (D50w Vial) 50 ml IV.PUSH UNSCH PRN PRN Reason: PER HYPOGLYCEMIA PROTOCOL Glucagon (Glucagon Inj) 1 mg OTHER PRN PRN PRN Reason: for Hypoglycemia Protocol Pantoprazole Sodium 80 mg/ (Sodium Chloride) 100 mls @ 10 mls/hr IV.CONT CONT [facility] Last Infusion: 02/26/18 08:28 Dose: Infused Insulin Aspart (Novolog Insulin Suppl Scale Inj) 0 unit SQ ACHS [facility]; Protocol Last Admin: 02/26/18 11:58 Dose: 1 unit Lactulose (Lactulose Liq) 30 ml PO DAILY PRN PRN Reason: SEVERE CONSITIPATION Sennosides (Senokot) 17.2 mg PO Q12H PRN PRN Reason: Moderate Constipation Sodium Chloride (Ns Flush) 2 ml IV.FLUSH BID [facility] Last Admin: 02/26/18 08:28 Dose: 2 ml Sodium Chloride (Ns Flush) 2 ml IV.FLUSH PRN PRN PRN Reason: FLUSH AFTER USING IV ACCESS Allergies Allergy/AdvReac Type Severity Reaction Status Date / Time morphine Allergy Intermediate HALLUCINATE Unverified 03/30/17 01:23 S Home Medications Medication Instructions Recorded Confirmed Type Calcium 600 PO 02/25/18 History amlodipine 10 mg PO DAILY 02/25/18 02/25/18 History apixaban [Eliquis] 5 mg PO BID 02/25/18 02/25/18 History atorvastatin [Lipitor] 80 mg PO DAILY 02/25/18 02/25/18 History doxazosin 4 mg PO BID 02/25/18 02/25/18 History escitalopram oxalate [Lexapro] PO BID 02/25/18 History furosemide 20 mg PO BID 02/25/18 02/25/18 History iron 28 mg PO BID 02/25/18 02/25/18 History metoprolol tartrate 12.5 mg PO BID 02/25/18 02/25/18 History pantoprazole 40 mg PO DAILY 02/25/18 02/25/18 History Exam Vital signs: Vital Signs 02/25/18 16:07 02/25/18 16:10 02/25/18 18:39 Temperature 99.1 F 98.5 F Pulse Rate 60 64 Respiratory Rate 20 18 Blood Pressure 146/60 H 118/56 L Pulse Oximetry 97 96 94 L 02/25/18 19:01 02/25/18 19:25 02/25/18 20:00 Temperature 98.4 F 98.3 F 97.8 F Pulse Rate 64 62 66 Respiratory Rate 16 18 17 Blood Pressure 172/73 H 140/64 158/70 H Pulse Oximetry 95 96 96 02/25/18 21:41 02/25/18 22:00 02/25/18 22:04 Temperature 97.2 F L Pulse Rate 84 80 Respiratory Rate 16 16 Blood Pressure 157/67 H 146/68 H Pulse Oximetry 95 94 L 95 02/26/18 00:00 02/26/18 04:00 02/26/18 08:00 Temperature 97.8 F 98 F 97.4 F L Pulse Rate 61 64 66 Respiratory Rate 19 17 20 Blood Pressure 121/56 L 122/65 173/77 H Pulse Oximetry 97 97 94 L 02/26/18 12:27 Temperature Pulse Rate Respiratory Rate Blood Pressure Pulse Oximetry 95 Intake & Output 02/25/18 02/26/18 02/26/18 18:59 06:59 18:59 Intake Total 250 / 250 150 / 150 Balance 250 / 250 150 / 150 Weight 241 kg 109.9 kg Intake: IV 150 / 150 Protonix Inj 80 MG In NS Inj 100 / 100 100 ML @ 10 mls/hr IV.CONT CONT [facility] Rx#:[id number] NS Inj 250 ML @ 15 mls/hr IV. 50 / 50 SIG ONCE [facility] Rx#:[id number] Intake (Blood Product) Amt 250 / 250 Rbc As-3 Leukoreduced Unit 0 / 0 [id number] Rbc As-3 Leukoreduced Unit 250 / 250 [id number] - Constitutional no acute distress, obese, chronically ill appearing - Routine HEENT Exam Head: Present: normocephalic, atraumatic Eye: Present: EOMI ENT: Present: mucous membranes moist - Routine Neck Exam Present: supple, full ROM - Routine Chest/Breast/Axilla Exam Chest wall: Absent: tenderness Axillae: Absent: lymphadenopathy - Routine Respiratory Exam Present: decreased breath sounds, CTA bilaterally, wheezes. Absent: respiratory distress - Routine Cardiovascular Exam Present: RRR, S1, S2 - Routine Abdominal Exam Present: soft, normoactive bowel sounds, organomegaly. Absent: tenderness, distended, rebound, Avilez Arriaga's sign - Routine Extremities Exam Present: normal capillary refill. Absent: edema, calf tenderness - Routine Skin Exam Present: intact - Routine Neurological Exam Present: alert, oriented X3 - Routine Psychiatric Exam Present: normal affect. Absent: depressed Results - Labs CBC & Chem 7: 02/26/18 12:15 02/26/18 03:12 Labs: Laboratory Results - last 24 hr 02/25/18 02/25/18 02/25/18 16:35 16:35 16:35 WBC 6.4 RBC 2.33 L Hgb 6.7 L* Hct 20.1 L* MCV 86.3 MCH 28.6 MCHC 33.1 RDW 16.5 Plt Count 160 MPV 9.8 Prelim Diff (Auto) Slide review pending Neut % (Auto) 72.7 H Lymph % (Auto) 15.0 [place] % (Auto) 8.0 Eos % (Auto) 3.2 Baso % (Auto) 1.1 Neut # (Auto) 4.7 Lymph # (Auto) 1.0 [place] # (Auto) 0.5 Eos # (Auto) 0.2 Baso # (Auto) 0.1 WBC Differential . Diff Scan Auto diff confirmed Differential Comment . Platelet Estimate Normal Platelet Morphology Enlarged H Ovalocytes 1+ H Keratocytes Occ H PT 11.4 INR 1.1 APTT 24.3 Sodium 140 Potassium 5.5 H Chloride 105 Carbon Dioxide 28.3 Anion Gap 7 BUN 44 H Creatinine 1.99 H Estimated GFR 33 L POC Glucose Random Glucose 385 H D Calcium 8.0 L Total Bilirubin 0.2 AST 8 L ALT 21 Alkaline Phosphatase 81 Total Protein 5.6 L Albumin 2.6 L Blood Type Antibody Screen MTS Gel Crossmatch 02/25/18 02/25/18 02/25/18 16:35 16:35 19:11 WBC RBC Hgb Hct MCV MCH MCHC RDW Plt Count MPV Prelim Diff (Auto) Neut % (Auto) Lymph % (Auto) [place] % (Auto) Eos % (Auto) Baso % (Auto) Neut # (Auto) Lymph # (Auto) [place] # (Auto) Eos # (Auto) Baso # (Auto) WBC Differential Diff Scan Differential Comment Platelet Estimate Platelet Morphology Ovalocytes Keratocytes PT INR APTT Sodium Potassium Chloride Carbon Dioxide Anion Gap BUN Creatinine Estimated GFR POC Glucose 338 H Random Glucose Calcium Total Bilirubin AST ALT Alkaline Phosphatase Total Protein Albumin Blood Type A Negative Antibody Screen Negative MTS Gel Crossmatch See Detail 02/25/18 02/26/18 02/26/18 20:35 03:12 03:12 WBC RBC Hgb 7.9 L Hct 23.2 L MCV MCH MCHC RDW Plt Count MPV Prelim Diff (Auto) Neut % (Auto) Lymph % (Auto) [place] % (Auto) Eos % (Auto) Baso % (Auto) Neut # (Auto) Lymph # (Auto) [place] # (Auto) Eos # (Auto) Baso # (Auto) WBC Differential Diff Scan Differential Comment Platelet Estimate Platelet Morphology Ovalocytes Keratocytes PT INR APTT Sodium 143 Potassium 4.7 D Chloride 108 H Carbon Dioxide 31.3 Anion Gap 4 L BUN 43 H Creatinine 1.82 H Estimated GFR 37 L POC Glucose 281 H Random Glucose 140 H D Calcium 8.3 L Total Bilirubin AST ALT Alkaline Phosphatase Total Protein Albumin Blood Type Antibody Screen MTS Gel Crossmatch 02/26/18 02/26/18 02/26/18 07:24 11:46 12:15 WBC 7.4 RBC 2.81 L Hgb 8.1 L Hct 24.2 L MCV 86.0 MCH 28.7 MCHC 33.4 RDW 16.3 Plt Count 173 MPV 9.8 Prelim Diff (Auto) Neut % (Auto) 74.4 H Lymph % (Auto) 14.1 [place] % (Auto) 6.8 Eos % (Auto) 3.4 Baso % (Auto) 1.3 Neut # (Auto) 5.5 Lymph # (Auto) 1.0 [place] # (Auto) 0.5 Eos # (Auto) 0.2 Baso # (Auto) 0.1 WBC Differential . Diff Scan Differential Comment Auto diff final Platelet Estimate Platelet Morphology Ovalocytes Keratocytes PT INR APTT Sodium Potassium Chloride Carbon Dioxide Anion Gap BUN Creatinine Estimated GFR POC Glucose 148 H 173 H Random Glucose Calcium Total Bilirubin AST ALT Alkaline Phosphatase Total Protein Albumin Blood Type Antibody Screen MTS Gel Crossmatch - Imaging Impressions Chest X-Ray 02/25/18 17:46 CONCLUSION: Mild increased density at the lateral right base likely related to a mild right pleural effusion. This is unchanged. 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 agree with transfusion 2. NPO after MN 3. Hold Eliqis today and tomorrow 4. Single balloon enteroscopy is not available at this hospital. But due to his persistent symptoms, and blood requirement I recommend EGD with enteroscopy. (D/W patient that unable to reach the distance in the small bowel as the SBE, but the enteroscopy will still be useful to dx and treat any proximal small bowel lesion) He agreeable to it. Risk and benefits discussed in detail. (5) Obesity Qualifiers: Obesity type: due to excess calories Obesity classification: adult class 1 ( BMI 30 - 34.9) Body mass index: BMI 32.0-32.9
--- NOTE | 2018-02-27 09:15 | P.PNIM ---
Subjective Interval history: States that he has no shortness of breath or dizziness. Feels okay. Has not seen any bloody stools. Physical Exam Vital signs: Vital Signs 02/26/18 12:00 02/26/18 12:27 02/26/18 16:00 Temperature 97.9 F 97.4 F L Pulse Rate 58 L 67 Respiratory Rate 20 20 Blood Pressure 174/74 H 155/72 H Pulse Oximetry 96 95 95 02/27/18 00:00 02/27/18 04:00 Temperature 98.4 F 97.8 F Pulse Rate 65 70 Respiratory Rate 20 18 Blood Pressure 184/77 H 168/92 H Pulse Oximetry 95 93 L Intake & Output 02/26/18 02/27/18 02/27/18 18:59 06:59 18:59 Intake Total 150 / 150 480 / 480 Output Total 1200 / 1200 Balance 150 / 150 -720 / -720 Weight 109.4 kg Intake: IV 150 / 150 Protonix Inj 80 MG In NS Inj 100 / 100 100 ML @ 10 mls/hr IV.CONT CONT [facility] Rx#:[id number] NS Inj 250 ML @ 15 mls/hr IV. 50 / 50 SIG ONCE [facility] Rx#:[id number] Oral 480 / 480 Output: Urine 1200 / 1200 Other: Date of Last Bowel Movement 02/26/18 # Bowel Movements 1 Narrative: GENERAL: Well-nourished well-developed white male in NAD SKIN: Warm and dry. HEAD: Normocephalic. EYES: No scleral icterus. No injection or drainage. NECK: Supple, trachea midline. No JVD or lymphadenopathy. CARDIOVASCULAR: Regular rate and rhythm without murmurs, gallops, or rubs. RESPIRATORY: Diminished breath sounds in the bases GASTROINTESTINAL: Abdomen soft, non-tender, nondistended. MUSCULOSKELETAL: No cyanosis, clubbing has 1+ edema Neurological: Alert and oriented to person place and time Results - Labs CBC & Chem 7: 02/26/18 12:15 02/26/18 03:12 Laboratory Results - last 24 hr 02/26/18 02/26/18 02/26/18 11:46 12:15 16:52 WBC 7.4 RBC 2.81 L Hgb 8.1 L Hct 24.2 L MCV 86.0 MCH 28.7 MCHC 33.4 RDW 16.3 Plt Count 173 MPV 9.8 Neut % (Auto) 74.4 H Lymph % (Auto) 14.1 [place] % (Auto) 6.8 Eos % (Auto) 3.4 Baso % (Auto) 1.3 Neut # (Auto) 5.5 Lymph # (Auto) 1.0 [place] # (Auto) 0.5 Eos # (Auto) 0.2 Baso # (Auto) 0.1 WBC Differential . Differential Comment Auto diff final POC Glucose 173 H 222 H 02/26/18 02/27/18 23:13 08:35 WBC RBC Hgb Hct MCV MCH MCHC RDW Plt Count MPV Neut % (Auto) Lymph % (Auto) [place] % (Auto) Eos % (Auto) Baso % (Auto) Neut # (Auto) Lymph # (Auto) [place] # (Auto) Eos # (Auto) Baso # (Auto) WBC Differential Differential Comment POC Glucose 236 H 159 H Assessment and Plan - Assessment (1) Symptomatic anemia Code(s): D64.9 - Anemia, unspecified Status: Chronic - Plan 73-year-old white male with a history of diabetes mellitus type 2, congestive heart failure, coronary artery disease, peripheral vascular disease, CVA who has been on Eliquis during the past week was sent to the emergency room by his primary care physician secondary abnormal lab in low hemoglobin of 6.6 1. Acute anemia likely due to underlying GI bleedat this time stopped Eliquis. Start patient on Protonix drip. Transfuse 2 units of packed red blood cell with Lasix between units. Monitor hemoglobin hematocrit. Hemoglobin currently 8.1. Appreciate GI service consultation and recommendations for EGD with enteroscopy today with Dr. Angelika Naranjo. 2. History of congestive heart failurecurrently compensated, will monitor closely on fluids given and transfusion. Lasix between units. Restart home Lasix at 20 mg p.o. twice daily, on metoprolol 12.5 mg p.o. twice daily 3. Diabetes mellitus type 2continue with Accu-Cheks with sliding scale insulin , blood sugar levels labile, will continue to monitor and provide coverage. 4. History of CVApatient currently wheelchair bound due to previous right tibial fracturecontinue physical therapy will need home health care upon discharge to home. At this time will hold Eliquis. 5. Acute kidney injury likely due to GI bleedwill monitor BUN/creatinine with transfusion. 5. DVT prophylaxisanticoagulation contraindicated due to GI bleed. Mechanical prophylaxis contraindicated secondary to bilateral lower extremity edema. 6. Hypertension, chronic essentialblood pressure labile will restart his home amlodipine.
[2018-02-27] MEDS ORDERED: Sodium Chlor 0.9% Inj 250 ML IV.SIG SCH (10:00)
[2018-02-27] MEDS: amLODIPine 10 MG Tablet PO SCH (10:10)
[2018-02-27] MEDS: Insulin NovoLOG Aspart Correctional Sugar Inj SQ SCH ×4 (10:11→21:16)
[2018-02-27 10:45] LABS: Baso # (Auto) 0.1 th/mm3 (0.0-0.2); Baso % (Auto) 1.2 % (0.0-2.0); Eos # (Auto) 0.2 th/mm3 (0.0-0.4); Eos % (Auto) 3.7 % (0.0-4.0); Hematocrit 24.9 % (39.0-51.0); Hemoglobin 8.2 gm/dL (13.0-17.0); Lymph # (Auto) 0.8 th/mm3 (1.0-4.8); Lymph % (Auto) 13.2 % (9.0-44.0); Mean Corpuscular HGB Conc 33.1 % (32.0-36.0); Mean Corpuscular Hemoglobin 28.5 pg (27.0-34.0); Mean Corpuscular Volume 86.3 fL (80.0-100.0); Mean Platelet Volume 9.7 fL (7.0-11.0); Mono # (Auto) 0.5 th/mm3 (0.0-0.9); Mono % (Auto) 8.1 % (0.0-8.0); Neut # (Auto) 4.7 th/mm3 (1.8-7.7); Neut % (Auto) 73.8 % (16.0-70.0); Platelet Count 156 th/mm3 (150-450); Red Blood Count 2.89 mil/mm3 (4.50-5.90); Red Cell Distribution Width 16.8 % (11.6-17.2); White Blood Count 6.4 th/mm3 (4.0-11.0)
[2018-02-27 11:10] LABS: Alanine Aminotransferase 19 U/L (12-78); Albumin 2.7 g/dL (3.4-5.0); Anion Gap 7 meq/L (5-15); Aspartate Aminotransferase 11 U/L (15-37); Blood Urea Nitrogen 35 mg/dL (7-18); Calcium 8.4 mg/dL (8.5-10.1); Carbon Dioxide 29.9 meq/L (21.0-32.0); Chloride 110 meq/L (98-107); Glomerular Filtration Rate 44 mL/min (>89); Glucose,Random 124 mg/dL (74-106); Potassium 4.6 meq/L (3.5-5.1); Sodium 147 meq/L (136-145)
[2018-02-27 11:12] LABS: Alkaline Phosphatase 81 U/L (45-117); Total Protein 5.7 g/dL (6.4-8.2)
[2018-02-27] MEDS ORDERED: Lidocaine PF 1% Inj 5 ML Syringe INFILTRATN ONE (12:00)
--- NOTE | 2018-02-27 16:20 | GIPROC ---
[facility] [address] [facility]. [facility], [address] ENTEROSCOPY PROCEDURE REPORT EXAM DATE: 02/27/2018 PATIENT NAME: Cristóbal Middleton MR#: [id number] BIRTHDATE: 1945 ATTENDING: Vandana Naranjo MD ORDER #: [id number] CHIMNEY BUILDER: Ameya Poole and Lucila Mueller STATUS: inpatient INDICATIONS: The patient is a 73 yr old male here for an enteroscopy procedure due to control bleeding PROCEDURE PERFORMED: Small bowel enteroscopy with control of bleeding MEDICATIONS: None and Per Anesthesia. CONSENT: The patient understands the risks and benefits of the procedure and understands that these risks include, but are not limited to: sedation, allergic reaction, infection, perforation and/or bleeding. Alternative means of evaluation and treatment include, among others: physical exam, x-rays, and/or surgical intervention. The patient elects to proceed with this endoscopic procedure. medical equipment was checked for proper function. Hand hygiene and appropriate measures for infection prevention was taken. After the risks, benefits and alternatives of the procedure were thoroughly explained, Informed consent was verified, confirmed and timeout was successfully executed by the treatment team. The [id number] (Pedi C) endoscope was introduced through the mouth and advanced to the jejunum. The prep was . The instrument was then slowly withdrawn while examining the mucosa circumferentially. The scope was then completely withdrawn from the patient and the procedure terminated. The pulse, BP, and O2 saturation were monitored and documented by the physician and the nursing staff throughout the entire procedure. The patient was cared for as planned according to standard protocol, then discharged to recovery in stable condition and with appropriate post procedure care. 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 APC ablation was performed. Otherwise normal egd with enteroscopy. No active bleeding noted. ADVERSE EVENTS: There were no complications. 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 Return to floor 2. Resume diet 3. Resume anticoagulation 4. Monitor hb and transfuse as needed. RECALL: procedure as needed Vandana Naranjo MD eSigned: Vandana Naranjo MD 2018-02-27 16:19:[id number] cc: PATIENT NAME: Cristóbal Middleton MR#: [id number]
[2018-02-27] MEDS ORDERED: Furosemide 20 MG Tablet PO SCH (18:00)
--- NOTE | 2018-02-27 18:36 | ECG ---
Date Performed: 02/26/2018 Time Performed: 21:08:01 PTAGE: 73 years EKG: Sinus rhythm WITH FIRST DEGREE AV BLOCK LEFT BUNDLE BRANCH BLOCK ABNORMAL ECG Compared to PREVIOUS TRACING , left bundle branch block is new, clinical correlation recommended. PRE VIOUS TRACIN06/01/2014 11.53 DOCTOR: Natan Gannon Interpretating Date/Time 02/27/2018 18:35:41
[2018-02-27] MEDS ORDERED: Doxazosin 4 MG Tablet PO SCH (21:00)
[2018-02-27] MEDS: Doxazosin 4 MG Tablet PO SCH (21:14)
[2018-02-27] MEDS: Metoprolol Tartrate 25 MG Tablet PO SCH (21:14)
[2018-02-27] MEDS: Ferrous Sulfate 325 MG Tablet PO SCH (21:15)
[2018-02-28 08:24] LABS: Hematocrit 28.2 % (39.0-51.0); Hemoglobin 9.5 gm/dL (13.0-17.0); Mean Corpuscular HGB Conc 33.6 % (32.0-36.0); Mean Corpuscular Hemoglobin 29.2 pg (27.0-34.0); Mean Corpuscular Volume 87.1 fL (80.0-100.0); Mean Platelet Volume 9.5 fL (7.0-11.0); Platelet Count 162 th/mm3 (150-450); Red Blood Count 3.23 mil/mm3 (4.50-5.90); Red Cell Distribution Width 16.9 % (11.6-17.2); White Blood Count 6.1 th/mm3 (4.0-11.0)
--- NOTE | 2018-02-28 08:45 | P.DCO ---
- Physical Therapy Order: Evaluate and treat - Home Health Nursing Order: Medical education, Nursing assessment with vital signs - Certification I have seen patient Cristóbal Middleton on 02/28/18. My clinical findings support the need for the requested home health care services because: Patient has SOB I certify that my clinical findings support that this patient is homebound because: Unsafe to leave home unassisted
[2018-02-28] MEDS: Metoprolol Tartrate 25 MG Tablet PO SCH (09:01)
[2018-02-28] MEDS: amLODIPine 10 MG Tablet PO SCH (09:01)
[2018-02-28] MEDS: Ferrous Sulfate 325 MG Tablet PO SCH (09:01)
[2018-02-28] MEDS: Doxazosin 4 MG Tablet PO SCH (09:01)
--- NOTE | 2018-02-28 09:02 | P.DS ---
Date of admission: 02/25/18 18:10 Primary care physician: Franny Holbrook MD Anticipated date of discharge: 02/28/18 Brief History from admission: 73-year-old white male with a history of diabetes mellitus type 2, congestive heart failure, coronary artery disease, CVA with right-sided weakness who reports 2-3 days of increased fatigue along with intermittent shortness of breath at rest in which his baseline activity is wheelchair-bound due to his right tibial fracture he sustained back in September of this year. His primary care physician ordered lab work on him and found to have a low hemoglobin of 6.6 and instructed him to come to emergency room for further evaluation and workup. He states that he has not seen any blood in the stools or black tarry stools. He has not had any concerns with constipation or diarrhea. He denies symptoms of abdominal pain nor any nausea or vomiting. He had a recent hospitalization at [facility] for congestive heart failure exacerbation and at that time had a hemoglobin of 8.0 and received 2 units of packed red blood cell transfusion per his at bedside. He was seen by his GI physician, Dr. Carbajal who at that time due to his congestive heart failure did not perform inpatient endoscopy. He states that he does have a history of duodenal ulcers which needed to be cauterized in the past. In addition, he was recently placed on Eliquis by his primary care physician for his history of CVA and peripheral vascular disease 1 week ago. Prior to that he was on warfarin. DS: Diagnosis - Discharge Diagnosis (1) Symptomatic anemia Status: Acute Diagnosis: Principal (2) Angiodysplasia of small intestine Status: Chronic Diagnosis: Secondary (3) Occult GI bleeding Status: Resolved Diagnosis: Secondary (4) USP current use of anticoagulant therapy Status: Chronic Diagnosis: Secondary (5) CHF (congestive heart failure) Status: Chronic Diagnosis: Secondary DS: Summary Hospital Course: These are the medical issues addressed during this hospitalization: 73-year-old white male with a history of diabetes mellitus type 2, congestive heart failure, coronary artery disease, peripheral vascular disease, CVA who has been on Eliquis during the past week was sent to the emergency room by his primary care physician secondary abnormal lab with low hemoglobin of 6.6 1. Acute anemia likely due to underlying GI bleedduring the hospitalization we stopped Eliquis. Start patient on Protonix drip. Transfuse a total of 3 units of packed red blood cell with Lasix between units. Monitor hemoglobin hematocrit. Hemoglobin currently pending. Appreciate GI service consultation and recommendations for EGD with enteroscopy on 02/[address] Angelika Naranjo. 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 He has recommended to resume anticoagulation Eliquis upon discharge to home. 2. History of congestive heart failurecurrently compensated, will monitor closely on fluids given and transfusion. Lasix between units. Restart home Lasix at 20 mg p.o. twice daily, on metoprolol 12.5 mg p.o. twice daily 3. Diabetes mellitus type 2continue with Accu-Cheks with sliding scale insulin , blood sugar levels labile, will continue to monitor and provide coverage. 4. History of CVApatient currently wheelchair bound due to previous right tibial fracturecontinue physical therapy will need home health care upon discharge to home. During the hospitalization hold Eliquis. Dr. Naranjo upon completion of the EGD has now recommended to restart Eliquis upon discharge to home. 5. Acute kidney injury likely due to GI bleedwill monitor BUN/creatinine with transfusion. 5. DVT prophylaxisanticoagulation contraindicated due to GI bleed. Mechanical prophylaxis contraindicated secondary to bilateral lower extremity edema. 6. Hypertension, chronic essentialblood pressure labile will restart his home amlodipine. - Time Spent with Patient Total time spent providing and/or coordinating discharge services: Less than 30 minutes - Quality: VTE Deep Vein Thrombosis/Pulmonary Embolism Present on Admission: No Exam Vital signs: Vital Signs 02/27/18 10:00 02/27/18 12:00 02/27/18 16:21 Temperature 97.4 F L 97.4 F L Pulse Rate 71 64 Respiratory Rate 20 16 Blood Pressure 174/75 H 155/68 H Pulse Oximetry 96 93 L 96 02/27/18 16:32 02/27/18 17:32 02/27/18 17:49 Temperature 98.1 F Pulse Rate 71 68 Respiratory Rate 16 18 Blood Pressure 161/69 H 196/84 H Pulse Oximetry 99 99 97 02/27/18 18:00 02/27/18 18:14 02/27/18 20:00 Temperature 97.8 F 97.3 F L 98.2 F Pulse Rate 64 67 68 Respiratory Rate 20 18 17 Blood Pressure 197/76 H 204/84 H 162/58 H Pulse Oximetry 94 L 96 96 02/27/18 21:13 02/28/18 00:00 02/28/18 04:00 Temperature 98.2 F 98.4 F 97.9 F Pulse Rate 68 57 L 58 L Respiratory Rate 17 18 18 Blood Pressure 162/58 H 166/77 H 168/75 H Pulse Oximetry 96 95 99 Intake & Output 02/27/18 02/28/18 02/28/18 18:59 06:59 18:59 Intake Total 780 / 780 1060 / 1060 Output Total 2600 / 2600 1600 / 1600 Balance -1820 / -1820 -540 / -540 Weight 107.9 kg Intake: Oral 480 / 480 660 / 660 Anesthesia Amount 300 / 300 Intake (Blood Product) Amt 0 / 0 400 / 400 Rbc As-3 Leukoreduced Unit 0 / 0 400 / 400 [id number] Output: Urine 2600 / 2600 1600 / 1600 Other: # Bowel Movements 0 Narrative: GENERAL: This is a well-nourished, well-developed patient, in no apparent distress. CARDIOVASCULAR: Regular rate and rhythm without murmurs, gallops, or rubs. RESPIRATORY: Clear to auscultation. Breath sounds equal bilaterally. No wheezes , rales, or rhonchi. GASTROINTESTINAL: Abdomen soft, non-tender, nondistended. Normal active bowel sounds MUSCULOSKELETAL: Extremities without clubbing, cyanosis, trace edema. NEURO: Alert & Oriented x4 to person, place, time, situation. Moves all ext x4 Results Procedures completed during hospitalization: 02/27 EGD with enteroscopy with Dr. Angelika Naranjo Labs on day of discharge: Labs from last 24 hours 02/28/18 02/27/18 02/27/18 07:53 19:45 17:09 WBC 6.1 RBC 3.23 L Hgb 9.5 L Hct 28.2 L MCV 87.1 MCH 29.2 MCHC 33.6 RDW 16.9 Plt Count 162 MPV 9.5 Neut % (Auto) Lymph % (Auto) Hill % (Auto) Eos % (Auto) Baso % (Auto) Neut # (Auto) Lymph # (Auto) Hill # (Auto) Eos # (Auto) Baso # (Auto) WBC Differential Differential Comment Sodium Potassium Chloride Carbon Dioxide Anion Gap BUN Creatinine Estimated GFR POC Glucose 242 H 126 H Random Glucose Calcium Total Bilirubin AST ALT Alkaline Phosphatase Total Protein Albumin MTS Gel Crossmatch 02/27/18 02/27/18 02/27/18 12:26 09:15 09:15 WBC 6.4 RBC 2.89 L Hgb 8.2 L Hct 24.9 L MCV 86.3 MCH 28.5 MCHC 33.1 RDW 16.8 Plt Count 156 MPV 9.7 Neut % (Auto) 73.8 H Lymph % (Auto) 13.2 Hill % (Auto) 8.1 H Eos % (Auto) 3.7 Baso % (Auto) 1.2 Neut # (Auto) 4.7 Lymph # (Auto) 0.8 L Hill # (Auto) 0.5 Eos # (Auto) 0.2 Baso # (Auto) 0.1 WBC Differential . Differential Comment Auto diff final Sodium 147 H Potassium 4.6 Chloride 110 H Carbon Dioxide 29.9 Anion Gap 7 BUN 35 H Creatinine 1.55 H Estimated GFR 44 L POC Glucose 138 H Random Glucose 124 H Calcium 8.4 L Total Bilirubin 0.4 AST 11 L ALT 19 Alkaline Phosphatase 81 Total Protein 5.7 L Albumin 2.7 L MTS Gel Crossmatch 02/25/18 16:35 WBC RBC Hgb Hct MCV MCH MCHC RDW Plt Count MPV Neut % (Auto) Lymph % (Auto) Hill % (Auto) Eos % (Auto) Baso % (Auto) Neut # (Auto) Lymph # (Auto) Hill # (Auto) Eos # (Auto) Baso # (Auto) WBC Differential Differential Comment Sodium Potassium Chloride Carbon Dioxide Anion Gap BUN Creatinine Estimated GFR POC Glucose Random Glucose Calcium Total Bilirubin AST ALT Alkaline Phosphatase Total Protein Albumin MTS Gel Crossmatch See Detail - Impressions ITS Impressions Chest X-Ray 02/25/18 17:46 CONCLUSION: Mild increased density at the lateral right base likely related to a mild right pleural effusion. This is unchanged. Discharge Plan - Discharge Disposition Patient Disposition: /Home Health Service - Discharge Condition Condition: Good - Discharge Order Discharge Orders: Discharge Order (Routine); Ordered 02/28/18 Ordered By: Ambreen Wong - Discharge Details Anticipated Discharge Date: 02/28/18 - Physicians Team Primary Care Provider: Franny Holbrook Attending Provider: Judith,Ambreen Other Providers: Bert Barrow MD ; [employer]
== END 2018-02-28 12:05 | disposition home health service (06) ==
LOC: NEPE 15:47 → NEDA 18:10 → N04 19:45
PROVIDERS: ADMIT Family Medicine; ATTEND Family Medicine
PROC: PANENDO (2018-02-27 15:50)